=== PATIENT | male | born 1975 | race Caucasian/White ===

== ENCOUNTER 2017-07-15 19:39 | Emergency (ER) | payer BC ==
[~2017-07-15] VITALS: Ht 185.4 cm; Wt 89.8 kg
[2017-07-15 19:45] VITALS: TEMP 37; Ht 185.4 cm; Wt 89.8 kg
[2017-07-15] MEDS ORDERED: DIPHTHERIA/TETANUS/PERTUSSIS 0.5 ML SYR/VIAL IM. ONE (20:00)
[2017-07-15] MEDS ORDERED: LIDOCAINE HCL 2% JELLY 30 ML TUBE EXT ONE (20:00)
--- NOTE | 2017-07-15 20:55 | EMERGENCY ROOM VISIT NOTE ---
ED Visit Note First contact with patient: 19:49 Chief Complaint: I was bit by dog. History of Present Illness: Mr. Loen is a 42-year-old white male who ambulates into the ED accompanied by female friend complaining of a dog bite to the upper lip. Patient reports approximately an hour ago he was teasing the family dog. The family dog bit his lower lip just left of the philtrum. Associated with the laceration patient does report he has a throbbing sensation in this area. He does not rate his discomfort. This discomfort worsens with palpation. He has not identified any alleviating factors related to the pain. He has not taken any medications for pain prior to arrival at the hospital. He denies any associated symptoms. Review of Systems: As noted above in history of present illness. Past Medical History: Status post vasectomy. Current Medications: Patient denies. Allergies to Medications: Patient denies. Social History: Patient is currently employed; he feels safe in his home environment; he admits to tobacco use and denies alcohol use. Tetanus Immunization Status: Patient reports greater than 10 years. Physical Examination: Vital Signs: Date Time Temp Pulse Resp B/P (MAP) Pulse Ox O2 Delivery O2 Flow Rate FiO2 07/15/17 19:45 37.0 81 18 154/90 98 Room Air GENERAL: 42-year-old male in mild distress due to pain, nontoxic-appearing, afebrile and hemodynamically stable. NEUROLOGICAL: Awake, alert and oriented to person, place and time. Answering questions appropriately and following commands. Normal gait. Good hand eye coordination. No focal motor or sensory deficits. SKIN: Warm, dry and pink. Face: 2.3 cm full-thickness laceration of the upper lip just left of midline. This laceration does cross the vermilion border but does not extend into the mouth. No active bleeding. HEENT: Face: Soft tissue injury as noted above. No malocclusion. No intraoral trauma. Airway patent. Speech is normal and clear. ED Course: Patient is assessed as noted above. Patient's medication list was reviewed. Patient was given an Adacel booster IM and 2% lidocaine jelly was put on the laceration for anesthesia. Patient's laceration was referred to Haven Wolfe PA-C for repair of laceration. Please see her notes, orders and discharge instructions. Clinical Impression: Low bite laceration to the upper lip. Disposition and Plan: Please see Miss Wolfe's notes and orders.
[2017-07-15] MEDS ORDERED: XYLOCAINE 1%/SOD BICARB 20 ML VIAL INFIL ONE (21:00)
--- NOTE | 2017-07-15 21:19 | EMERGENCY ROOM VISIT NOTE ---
ED Visit Note First contact with patient: 20:18 Verbal consent was obtained to perform the procedure. Using sterile technique the wound was cleaned with Betadine. The area was sterilely draped. 3 ml of 1 % buffered lidocaine was used to anesthetize the aspiration. Once the patient was anesthetized, the wound was copiously irrigated under pressure with sterile saline. The wound was explored and there were no deep structures injured. The laceration was repaired using 4 simple interrupted 6-0 nylon sutures with the wound edges being well approximated. The patient tolerated the procedure well. Hemostasis was achieved. The area was cleaned with sterile saline and dressed with bacitracin ointment and bandage. The patient was given a tetanus booster. The patient was discharged home in good condition.
[2017-07-15] MEDS ORDERED: AMOX875T PO (21:20)
[2017-07-15] MEDS ORDERED: AMOXICILLIN/CLAVULANATE TAB 875 MG TAB PO ONE (21:30)
[2017-07-15 21:31] VITALS: BP 140/79; PULSE 66; O2SAT 98
== END 2017-07-15 21:33 | disposition home or self-care (01) ==
LOC: C.EDB 19:40 → C.EDD 21:33
DX: S00.571A Other superficial bite of lip, initial encounter (principal); W54.0XXA Bitten by dog, initial encounter; F17.200 Nicotine dependence, unspecified, uncomplicated; Z23 Encounter for immunization

== ENCOUNTER 2017-07-21 15:42 | Emergency (ER) | payer BC ==
[~2017-07-21] VITALS: Ht 185.4 cm; Wt 88.9 kg
[~2017-07-21 15:42] MED LIST: AMOX875T PO
[2017-07-21 15:53] VITALS: BP 158/78; PULSE 69; TEMP 36.6; O2SAT 98; Ht 185.4 cm; Wt 88.9 kg
--- NOTE | 2017-07-21 21:03 | EMERGENCY ROOM VISIT NOTE ---
ED Visit Note First contact with patient: 15:58 CHIEF COMPLAINT: Suture removal HISTORY OF PRESENT ILLNESS: Mr. Leon is a 42-year-old white male who ambulates into the ED requesting suture removal for a upper lip laceration he sustained 7 days ago. He reports there has been no pain, swelling, redness, or drainage from the wound and he feels like the laceration is healing well. PHYSICAL EXAM: Vital Signs: Date Time Temp Pulse Resp B/P (MAP) Pulse Ox O2 Delivery O2 Flow Rate FiO2 07/21/17 15:53 36.6 69 20 158/78 98 Room Air Face: Clean dry and intact wound on the left side of the upper lip without signs of infection (erythema, swelling, tenderness, purulent drainage) ED COURSE: 4 sutures were removed without any difficulty and there was no separation of the wound edges. DISPOSITION: Patient discharged home in stable condition. CLINICAL IMPRESSION: Suture removal; Well healing laceration. PLAN: Patient is encouraged to continue current wound care and watch for signs of infection or Patient was encouraged return ED for any signs of infection or any new/ concerning symptoms.
== END 2017-07-21 16:08 | disposition home or self-care (01) ==
LOC: C.EDB 15:43 → C.EDD 16:08
DX: Z48.02 Encounter for removal of sutures (principal)